=== PATIENT | female | born 1985 | race African-American/Black ===

== ENCOUNTER → 2016-09-15 | Outpatient (CLI) | payer OTHER ==
[~2016-09-15] MED LIST: PRENATAL1 TA1 PO; ZOFRAN ODT4 MG PO
--- NOTE | ~2016-09-15 | EKG ---
PATIENT: AMBERLY FORD UNIT #: [id number] Ventricular Rate: 77 BPM Atrial Rate: 77 BPM P-R Interval: 170 ms QRS Duration: 104 ms Q-T Interval: 408 ms QTC Calculation(Bezet): 461 ms P Benedict: 30 degrees Calculated R Benedict: 13 degrees Calculated T Benedict: 20 degrees Diagnosis Line: Normal sinus rhythm Diagnosis Line: Prolonged QT Diagnosis Line: Abnormal ECG Diagnosis Line: No previous ECGs available Diagnosis Line: Confirmed by DIPAK FLOREZ MD ([id number]) on 09/15/2016 Diagnosis Line: 7:46:26 PM INTERPRETING MD: GAUTAM DURAN
== END | disposition home or self-care (01) ==
LOC: CEKG 11:13
DX: R94.31 Abnormal electrocardiogram [ECG] [EKG] (principal)
CPT/HCPCS: 93005